=== PATIENT | male | born 1990 | race African-American/Black ===

== ENCOUNTER 2018-03-19 11:50 | Emergency (ER) | payer SELFPAY ==
[~2018-03-19] VITALS: Ht 172.7 cm; Wt 81.8 kg
[2018-03-19] MEDS ORDERED: BACITRACIN 0.9 GM PACKET OINTMENT TP ONE (12:45)
[2018-03-19] MEDS ORDERED: PERTUSS(ACELL),DIPH,TET VAC/PF 0.5 ML VIAL IM ONE (12:45)
[2018-03-19 13:20] VITALS: BP 116/62
== END 2018-03-19 13:35 | disposition home or self-care (01) ==
LOC: EMS 11:51
DX: S06.0X0A Concussion without loss of consciousness, initial encounter (principal); S00.83XA Contusion of other part of head, initial encounter; S50.812A Abrasion of left forearm, initial encounter; S80.211A Abrasion, right knee, initial encounter; F12.90 Cannabis use, unspecified, uncomplicated; F17.210 Nicotine dependence, cigarettes, uncomplicated; Z02.89 Encounter for other administrative examinations; Y04.0XXA Assault by unarmed brawl or fight, initial encounter; Y93.89 Activity, other specified; Y92.89 Other specified places as the place of occurrence of the external cause; Y99.8 Other external cause status
CPT/HCPCS: 70450; 90471; 90715; 99284; 99406